=== PATIENT | female | born 1930 | race African-American/Black ===

== ENCOUNTER → 2017-03-07 | Outpatient (CLI) | payer MEDICARE ==
[~2017-03-07] MED LIST: ATOR10TA PO; CALC0.25 PO; CALC600T34 PO; CLON0.2T PO; ISOS30TA3 PO; LANTUS2P SC; LATA.005%O OU; LEVA250T PO; LORTA5 PO; METO100T PO; NIFE1TAB86 PO; NOVOLOGSS SQ; NU-IRON PO; TORS20TA PO; VITATAB25 PO; [UNRECOGNIZED DRUG - CODE] OP; [UNRECOGNIZED DRUG - OTHER]
[2017-03-07 09:57] LABS: ANION GAP 9 MEQ/L (5-15); AST (GOT) 17 U/L (15-37); BICARBONATE 26.7 MEQ/L (21.0-32.0); BLOOD UREA NITROGEN 28 MG/DL (7-18); CHLORIDE 98 MEQ/L (98-107); GLOMERULAR FILTRATION RATE 10 ML/MIN (>89); GLUCOSE,FASTING 156 MG/DL (74-99); POTASSIUM 4.2 MEQ/L (3.5-5.1); SODIUM (NA) 134 MEQ/L (136-145)
[2017-03-07 09:58] LABS: ALT (GPT) 19 U/L (10-53)
[2017-03-07 10:01] LABS: ALKALINE PHOSPHATASE 81 U/L (45-117); HDL CHOLESTEROL 61.9 MG/DL (40.0-60.0); LDL CHOLESTEROL 79 MG/DL (0-99); TOTAL BILIRUBIN ADULT 0.4 MG/DL (0.2-1.0)
[2017-03-07 17:35] LABS: HEMOGLOBIN A1b 2.2 %; HEMOGLOBIN Ao 82.6 %; HEMOGLOBIN LA1C 2.3 %; HEMOGLOBIN P3 5.8 %
== END ==
LOC: CLAB 08:27
PROVIDERS: ATTEND Internal Medicine Endocrinology, Diabetes & Metabolism
DX: E78.5 Hyperlipidemia, unspecified (principal); E11.9 Type 2 diabetes mellitus without complications; I10 Essential (primary) hypertension
CPT/HCPCS: 36415; 80053; 80061; 83036

== ENCOUNTER 2017-11-20 14:16 | Inpatient (IN) ==
--- NOTE | 2017-11-20 15:50 | XR ---
EXAM DATE: 11/20/2017 3:38 PM EDT AGE/SEX: 86 years / Female INDICATIONS: Possible infected right 3rd digit CLINICAL DATA: This is the patient's initial encounter. Patient reports that signs and symptoms have been present for 3 days and indicates a pain score of 10/10. MEDICAL/SURGICAL HISTORY: . diabetes, neuropathy, dialysis, carpal tunnel None. COMPARISON: No prior exams available for comparison. FINDINGS: The bone density is diminished. Moderate degenerative changes at the thumb basal joint. Chondrocalcin osis at the triangle fibrocartilage complex. There is soft tissue swelling seen at the tip of the thi rd digit with some osseous resorption of the distal phalangeal tuft, findings most characteristic of osteomyelitis. No dislocation. CONCLUSION: Soft tissue swelling third digit distally with partial resorption of the tuft of the third distal pha lanx, most concerning for osteomyelitis and cellulitis. Electronically signed by: Alonzo Galvan MD 11/20/2017 3:49 PM EDT
[2017-11-20 16:25] LABS: Baso # (Auto) 0.1 th/mm3 (0.0-0.2); Baso % (Auto) 0.4 % (0.0-2.0); Eos % (Auto) 0.1 % (0.0-4.0); Hematocrit 33.1 % (35.0-46.0); Lymph # (Auto) 0.9 th/mm3 (1.0-4.8); Lymph % (Auto) 5.5 % (9.0-44.0); Mean Corpuscular HGB Conc 33.4 % (32.0-36.0); Mean Corpuscular Hemoglobin 33.3 pg (27.0-34.0); Mean Corpuscular Volume 99.9 fL (80.0-100.0); Mean Platelet Volume 8.9 fL (7.0-11.0); Mono # (Auto) 1.8 th/mm3 (0.0-0.9); Mono % (Auto) 10.4 % (0.0-8.0); Neut # (Auto) 14.3 th/mm3 (1.8-7.7); Neut % (Auto) 83.6 % (16.0-70.0); Platelet Count 201 th/mm3 (150-450); Red Blood Count 3.31 mil/mm3 (4.00-5.30); Red Cell Distribution Width 13.2 % (11.6-17.2); White Blood Count 17.1 th/mm3 (4.0-11.0)
[2017-11-20 16:59] LABS: Albumin 3.4 g/dL (3.4-5.0); Anion Gap 9 meq/L (5-15); Aspartate Aminotransferase 11 U/L (15-37); Blood Urea Nitrogen 21 mg/dL (7-18); Calcium 9.4 mg/dL (8.5-10.1); Carbon Dioxide 26.1 meq/L (21.0-32.0); Chloride 98 meq/L (98-107); Glomerular Filtration Rate 15 mL/min (>89); Glucose,Random 264 mg/dL (74-106); Sodium 133 meq/L (136-145)
[2017-11-20 17:00] LABS: Alanine Aminotransferase 16 U/L (10-53)
[2017-11-20 17:02] LABS: Alkaline Phosphatase 76 U/L (45-117); Total Protein 8.3 g/dL (6.4-8.2)
[2017-11-20] MEDS ORDERED: Clindamycin 600 mg/NS Premix 600 MG/50 ML PIGGYBACK IV.SIG ONE (19:43)
[2017-11-20] MEDS ORDERED: Lidocaine 1% Inj 30 ML Vial INFILTRATN ONE (19:47)
[2017-11-20] MEDS ORDERED: Tetanus/Diphtheria Toxoid Adult Vaccine Inj 0.5 ML Vial IM ONE (19:47)
[2017-11-20] MEDS ORDERED: Acetaminophen 325 MG Tablet PO ONE (20:03)
[2017-11-20] MEDS ORDERED: Bisacodyl 10 MG Supp RECTAL PRN (20:26)
[2017-11-20] MEDS ORDERED: Vancomycin Consult Pharmacy 1 EACH OTHER SCH (20:36)
[2017-11-20] MEDS ORDERED: Dextrose 50% in Water 50 ML Vial IV.PUSH PRN (20:38)
[2017-11-20] MEDS ORDERED: Levofloxacin 250 mg Premix Inj 250 MG/50 ML PIGGYBACK IV.SIG ONE (20:43)
[2017-11-20] MEDS ORDERED: Custom Consult Pharmacy 1 EACH OTHER SCH (21:00)
[2017-11-20] MEDS ORDERED: Insulin NovoLOG Aspart Correctional Sugar Inj SQ SCH (21:00)
[2017-11-20] MEDS ORDERED: Temazepam 15 MG Capsule PO PRN (21:00)
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
[2017-11-20] MEDS ORDERED: Vancomycin Inj 1,000 MG in Sodium Chlor 0.9% Inj 250 ML IV.SIG ONE (22:00)
[2017-11-20] MEDS: Clindamycin 900 mg/NS Premix 900 MG/50 ML PIGGYBACK IV.SIG SCH (22:00)
[2017-11-20] MEDS: Insulin NovoLOG Aspart Correctional Sugar Inj SQ SCH (23:19)
[2017-11-21] MEDS: Senna/Docusate Sodium 8.6/50 MG Tablet PO SCH ×3 (00:10→21:22)
[2017-11-21] MEDS: Clindamycin 900 mg/NS Premix 900 MG/50 ML PIGGYBACK IV.SIG SCH ×3 (05:18→21:21)
--- NOTE | 2017-11-21 06:11 | P.HPIM ---
History of Present Illness Primary Care Physician: UNKNOWN History of Present Illness: 86 y/o female with a history of ESRD on dialysis, DM, HTN, and HLD presented to the ED for evaluation of infection to her right middle finger. She states she uses a tamie to play games and she plays with it using her right middle finger. Over time she has developed a callus and 4 days ago she bit it off. Today she states she was having fever and chills at home and pain in the middle finger that is thobbing, constant,5/10, and radiating up her arm. She denies any chest pain or sob. Meat Lugger: Dr. Adam Inpatient Certification: I certify that the inpatient services were ordered in accordance with Medicare regulations governing the order. This includes certification that hospital inpatient services are reasonable and necessary and in the case of services not specified as inpatient-only under 42 CFR 419.22(n), that they are appropriately provided as inpatient services in accordance to with the 2-midnight benchmark under 43 CFR 412.3(e) Estimated Total Length of Stay (Days): 3 Plans for Post Hospital Care: Not yet determined Review of Systems All other systems reviewed negative except as stated in HPI PMFSH - History History Provided By: Patient - Medical History Medical History: Medical History (Last Updated 11/21/17 @ 06:15 by YARIEL Melendrez) Anxiety Dementia Diabetes ESRD (end stage renal disease) on dialysis HLD (hyperlipidemia) HTN (hypertension) - Surgical History Surgical History: Surgical History (Last Updated 11/21/17 @ 06:15 by YARIEL Melendrez) H/O eye surgery - Family History Family History: Family History (Last Updated 11/21/17 @ 06:16 by YARIEL Melendrez) Other No history of heart disease - Tobacco History Second Hand Smoke Exposure: No Tobacco Use In Past 30 Days: No Smoking Status: Never smoker - Alcohol History How Often Do You Have a Drink Containing Alcohol: Monthly or less - Substance Use History Substance History: No History of Abuse - Travel History Recent Travel in the [place] Within the Last 8 Weeks: No Recent Travel Out of the Country Within the Last 8 Weeks: No - Immunization History Tetanus Immunization: <5 Years Tetanus Immunization Year if Known: 2017 Hx Influenza Vaccine This Season: Yes Medications and Allergies Active Medications: Active Medications Al Hydroxide/Mg Hydroxide (Milk Of Magnesia Liq) 30 ml PO Q12H PRN PRN Reason: Mild Constipation Bisacodyl (Dulcolax Supp) 10 mg RECTAL DAILY PRN PRN Reason: SEVERE CONSITIPATION Dextrose (D50w Vial) 50 ml IV.PUSH UNSCH PRN PRN Reason: PER HYPOGLYCEMIA PROTOCOL Glucagon (Glucagon Inj) 1 mg OTHER PRN PRN PRN Reason: for Hypoglycemia Protocol Clindamycin/Sodium Chloride (Cleocin 900 Mg/Ns Premix) 900 mg in 50 mls @ 100 mls/hr IV.SIG Q8H [facility] Last Admin: 11/21/17 05:18 Dose: 100 mls/hr Pharmacy Profile Note (Custom Consult Pharmacy) 0 mls @ 0 mls/hr OTHER [facility] Pharmacy Profile Note (Vancomycin Consult Pharmacy) 0 mls @ 0 mls/hr OTHER [facility] Aztreonam 1,000 mg/ Sodium (Chloride) 100 mls @ 200 mls/hr IV.SIG Q8H [facility] Last Admin: 11/21/17 05:19 Dose: 200 mls/hr Insulin Aspart (Novolog Insulin Correctional Sugar Inj) 0 unit SQ ACHS [facility]; Protocol Last Admin: 11/20/17 23:19 Dose: 9 unit Lactulose (Lactulose Liq) 30 ml PO DAILY PRN PRN Reason: SEVERE CONSITIPATION Senna/Docusate Sodium (Lisbeth-Colace) 1 tab PO BID [facility] Last Admin: 11/21/17 00:10 Dose: Not Given Sennosides (Senokot) 17.2 mg PO Q12H PRN PRN Reason: Moderate Constipation Last Admin: 11/20/17 23:24 Dose: 17.2 mg Temazepam (Restoril) 15 mg PO HS PRN PRN Reason: INSOMNIA Allergies Allergy/AdvReac Type Severity Reaction Status Date / Time penicillin G Allergy Rash Verified 11/21/17 01:31 Home Medications Medication Instructions Recorded Confirmed Type Isordil 11/20/17 History Novolog PenFill U-100 Insulin 11/20/17 History Tresiba FlexTouch U-100 11/20/17 History aspirin [Enteric Coated Aspirin] 11/20/17 11/20/17 History clonidine HCl 50 mg PO TID 11/20/17 11/20/17 History metoprolol tartrate 11/20/17 History nifedipine 07/30/18 History torsemide 11/20/17 History Exam Vital signs: Vital Signs 11/20/17 15:09 11/20/17 22:21 11/20/17 23:00 Temperature 101.6 F H 101.0 F H Pulse Rate 99 H 72 86 Respiratory Rate 20 18 Blood Pressure 213/83 H 170/86 H Pulse Oximetry 96 99 11/21/17 00:00 11/21/17 04:00 Temperature 99.1 F 98.4 F Pulse Rate 87 85 Respiratory Rate 18 17 Blood Pressure 164/70 H 155/67 H Pulse Oximetry 98 96 Intake & Output 11/20/17 11/20/17 11/21/17 06:59 18:59 06:59 Intake Total 500 / 500 Output Total Balance 499 / 499 Weight 92.986 kg 205 kg Intake: IV 100 / 100 Azactam Inj 1,000 MG In NS Inj 100 / 100 100 ML @ 200 mls/hr IV.SIG Q8H [place] Rx#:[id number] Oral 400 / 400 Output: Urine Other: Weight On Admission 205 kg Narrative: GENERAL: This is a well-nourished, well-developed patient, in no apparent distress. SKIN: Right middle finger with serous drainage, packed with gauze. warm to touch CARDIOVASCULAR: Regular rate and rhythm without murmurs, gallops, or rubs. RESPIRATORY: Clear to auscultation. Breath sounds equal bilaterally. No wheezes , rales, or rhonchi. GASTROINTESTINAL: Abdomen soft, non-tender, nondistended. Normal active bowel sounds MUSCULOSKELETAL: Extremities without clubbing, cyanosis, or edema. NEURO: Alert & Oriented x4 to person, place, time, situation. Moves all ext x4 Results - Labs CBC & Chem 7: 11/20/17 15:50 11/20/17 15:50 Labs: Short CBC 11/20/17 Range/Units 15:50 WBC 17.1 H (4.0-11.0) th/mm3 Hgb 11.0 L (11.6-15.3) gm/dL Hct 33.1 L (35.0-46.0) % Plt Count 201 (150-450) th/mm3 BMP 11/20/17 15:50 Sodium 133 L Potassium 4.0 Chloride 98 Carbon Dioxide 26.1 BUN 21 H Creatinine 3.60 H Calcium 9.4 Liver Function 11/20/17 Range/Units 15:50 Total Bilirubin 0.6 (0.2-1.0) mg/dL AST 11 L (15-37) U/L ALT 16 (10-53) U/L Alkaline Phosphatase 76 (45-117) U/L Albumin 3.4 (3.4-5.0) g/dL - Imaging Impressions Finger X-Ray 11/20/17 00:00 CONCLUSION: Soft tissue swelling third digit distally with partial resorption of the tuft of the third distal phalanx, most concerning for osteomyelitis and cellulitis. Caprini VTE Risk Assessment Caprini VTE Risk Assessment: Moderate/High Risk (score >= 2) Caprini Risk Assessment Model: Point Value = 1 Point Value = 2 Point Value = 3 Point Value = 5 Age 41-60 Minor surgery BMI > 25 kg/m2 Swollen legs Varicose veins or History of unexplained or recurrent spontaneous Oral contraceptives or hormone replacement Sepsis (< 1 month) Serious lung disease, including pneumonia (< 1 month) Abnormal pulmonary function Acute myocardial infarction Congestive heart failure (< 1 month) History of inflammatory bowel disease Medical patient at bed rest Age 61-74 Arthroscopic surgery Major open surgery (> 45 min) Laparoscopic surgery (> 45 min) Malignancy Confined to bed (> 72 hours) Immobilizing plaster cast Central venous access Age >= 75 History of VTE Family history of VTE Factor V Leiden Prothrombin [id number] Lupus anticoagulant Anticardiolipin antibodies Elevated serum homocysteine Heparin-induced thrombocytopenia Other congenital or acquired thrombophilia Stroke (< 1 month) Elective arthroplasty Hip, pelvis, or leg fracture Acute spinal cord injury (< 1 month) Prophylaxis Regimen: Total Risk Factor Score Risk Level Prophylaxis Regimen 0-1 Low Early ambulation 2 Moderate Order ONE of the following: *Sequential Compression Device (SCD) *Heparin 5000 units SQ BID 3-4 Higher Order ONE of the following medications: *Heparin 5000 units SQ TID *Enoxaparin/Lovenox 40 mg SQ daily (WT < 150 kg, CrCl > 30 mL/min) *Enoxaparin/Lovenox 30 mg SQ daily (WT < 150 kg, CrCl > 10-29 mL/min) *Enoxaparin/Lovenox 30 mg SQ BID (WT < 150 kg, CrCl > 30 mL/min) AND/OR *Sequential Compression Device (SCD) 5 or more Highest Order ONE of the following medications: *Heparin 5000 units SQ TID (Preferred with Epidurals) *Enoxaparin/Lovenox 40 mg SQ daily (WT < 150 kg, CrCl > 30 mL/min) *Enoxaparin/Lovenox 30 mg SQ daily (WT < 150 kg, CrCl > 10-29 mL/min) *Enoxaparin/Lovenox 30 mg SQ BID (WT < 150 kg, CrCl > 30 mL/min) AND *Sequential Compression Device (SCD) Assessment and Plan - Plan Right middle finger osteomyelitis, sepsis WBC 17.1, temp 101.6 Finger x ray reviewed and shows soft tissue swelling third digit distally with partial resorption of the tuft of the third distal phalanx, most concerning for osteomyelitis and cellulitis -Consult hand surgery for evaluation -IV antibiotics Azactam and vancomycin -Consult infectious disease for evaluation -NPO -Pain management with IV Morphine -Wound culture pending -OT ordered -Labs in AM ESRD on diaylsis -Consult nephrology for evaluation -Avoid nephrotoxins HTN, chronic -resume home medications one med rec is updated -Clonidine prn for now Diabetes, chronic -Accu checks with SSI -Diabetic diet when no longer npo DVT prophylaxis: SCDs Discussed Condition With: Patient and RN H&P: Quality - VTE Deep Vein Thrombosis/Pulmonary Embolism Present on Admission: No
[2017-11-21] MEDS ORDERED: Morphine Inj 4 MG/ML Vial IV.PUSH PRN (07:00)
[2017-11-21 07:46] LABS: Baso % (Auto) 0.3 % (0.0-2.0); Eos # (Auto) 0.1 th/mm3 (0.0-0.4); Eos % (Auto) 0.8 % (0.0-4.0); Hematocrit 29.8 % (35.0-46.0); Hemoglobin 9.8 gm/dL (11.6-15.3); Lymph # (Auto) 1.3 th/mm3 (1.0-4.8); Lymph % (Auto) 8.4 % (9.0-44.0); Mean Corpuscular HGB Conc 32.9 % (32.0-36.0); Mean Corpuscular Hemoglobin 33.2 pg (27.0-34.0); Mean Corpuscular Volume 100.7 fL (80.0-100.0); Mean Platelet Volume 10.3 fL (7.0-11.0); Mono # (Auto) 1.6 th/mm3 (0.0-0.9); Mono % (Auto) 10.3 % (0.0-8.0); Neut # (Auto) 12.2 th/mm3 (1.8-7.7); Neut % (Auto) 80.2 % (16.0-70.0); Platelet Count 147 th/mm3 (150-450); Red Blood Count 2.96 mil/mm3 (4.00-5.30); Red Cell Distribution Width 12.9 % (11.6-17.2); White Blood Count 15.2 th/mm3 (4.0-11.0)
[2017-11-21 08:17] LABS: Alanine Aminotransferase 14 U/L (10-53); Albumin 2.7 g/dL (3.4-5.0); Alkaline Phosphatase 77 U/L (45-117); Anion Gap 10 meq/L (5-15); Aspartate Aminotransferase 10 U/L (15-37); Blood Urea Nitrogen 34 mg/dL (7-18); Calcium 8.6 mg/dL (8.5-10.1); Carbon Dioxide 25.8 meq/L (21.0-32.0); Chloride 101 meq/L (98-107); Glomerular Filtration Rate 11 mL/min (>89); Glucose,Random 232 mg/dL (74-106); Potassium 4.1 meq/L (3.5-5.1); Sodium 137 meq/L (136-145)
[2017-11-21] MEDS ORDERED: Sod Chloride 0.9% Inj 1,000 ML OTHER PRN ×2 (10:16)
[2017-11-21] MEDS ORDERED: Gelatin 12 MM/7 MM Topical Foam TOPICAL PRN (10:16)
[2017-11-21] MEDS ORDERED: Heparin 10,000 UNITS/10 ML Vial (for IV use) OTHER PRN (10:16)
[2017-11-21] MEDS ORDERED: Albumin Human 25% Inj 100 ML IV.SIG PRN (10:16)
[2017-11-21] MEDS ORDERED: Acetaminophen 325 MG Tablet PO PRN (10:16)
[2017-11-21] MEDS ORDERED: Sod Chloride 0.9% Inj 1,000 ML IV.CONT PRN (10:16)
--- NOTE | 2017-11-21 10:16 | P.CONNP ---
History of Present Illness Reason for Consult: End-stage renal disease with need for in-house hemodialysis. Primary Care Provider: UNKNOWN Chief Complaint: Infection right hand. History of Present Illness: Patient has a history of diabetes mellitus, hypertension as well as end-stage renal disease on hemodialysis Monday. She apparently developed a scab involving the middle finger of the right hand. She apparently remove the scab by biting it and subsequently developed increasing swelling, pain and warmth of the right hand. Was sent to the emergency room and now diagnosed as having right hand infection. Review of Systems Cardiovascular: Denies chest pain, Denies chest pain at rest, Denies chest pain with activity, Denies excessive sweating, Denies fainting, Denies fast heart rate, Denies foot swelling, Denies generalized swelling, Denies irregular heart rhythm, Denies leg pain with activity, Denies leg sores, Denies leg swelling, Denies lightheadedness, Denies radiating jaw, neck or arm pain, Denies rapid, pounding, or irregular heartbeat, Denies shortness of breath, Denies shortness of breath with activity, Denies shortness of breath when lying down, Denies shortness of breath causing sudden awakening, Denies slow heart rate, Denies other Respiratory: Denies change in phlegm color, Denies chest congestion, Denies cough, Denies coughing up blood, Denies excessive phlegm production, Denies pain on inspiration, Denies pain with cough, Denies shortness of breath, Denies shortness of breath with activity, Denies snoring, Denies stridor, Denies wheezing Gastrointestinal: Denies abdominal pain, Denies belching, Denies black, tarry stools, Denies bloating, Denies bright, red blood in stools, Denies change in bowel habits, Denies constant urge to pass stool, Denies change in stools, Denies coffee ground vomit, Denies constipation, Denies cramping, Denies difficulty swallowing, Denies excessive passing of gas, Denies feeling full early, Denies heartburn, Denies incontinent of stools, Denies loose stools, Denies nausea, Denies pain with swallowing, Denies vomiting, Denies vomiting blood, Denies other Musculoskeletal: Reports joint pain PMFSH - History History Provided By: Patient - Medical History Medical History: Medical History (Last Reviewed 11/21/17 @ 10:07 by Jose Elias Adam MD) Anxiety Dementia Diabetes ESRD (end stage renal disease) on dialysis HLD (hyperlipidemia) HTN (hypertension) - Surgical History Surgical History: Surgical History (Last Reviewed 11/21/17 @ 10:06 by Jose Elias Adam MD) H/O eye surgery - Family History Family History: Family History (Last Updated 11/21/17 @ 06:16 by Lima Barajas [facility]) Other No history of heart disease - Tobacco History Second Hand Smoke Exposure: No Tobacco Use In Past 30 Days: No Smoking Status: Never smoker - Alcohol History How Often Do You Have a Drink Containing Alcohol: Monthly or less - Substance Use History Substance History: No History of Abuse - Travel History Recent Travel in the [place] Within the Last 8 Weeks: No Recent Travel Out of the Country Within the Last 8 Weeks: No - Immunization History Tetanus Immunization: <5 Years Tetanus Immunization Year if Known: 2017 Hx Influenza Vaccine This Season: Yes Medications and Allergies Active Medications: Active Medications Al Hydroxide/Mg Hydroxide (Milk Of Eleazar Lireshma) 30 ml PO Q12H PRN PRN Reason: Mild Constipation Bisacodyl (Dulcolax Supp) 10 mg RECTAL DAILY PRN PRN Reason: SEVERE CONSITIPATION Clonidine HCl (Catapres) 0.1 mg PO Q6H PRN PRN Reason: SBP>160, DBP>90 Dextrose (D50w Vial) 50 ml IV.PUSH UNSCH PRN PRN Reason: PER HYPOGLYCEMIA PROTOCOL Glucagon (Glucagon Inj) 1 mg OTHER PRN PRN PRN Reason: for Hypoglycemia Protocol Clindamycin/Sodium Chloride (Cleocin 900 Mg/Ns Premix) 900 mg in 50 mls @ 100 mls/hr IV.SIG Q8H [place] Last Admin: 11/21/17 05:18 Dose: 100 mls/hr Pharmacy Profile Note (Custom Consult Pharmacy) 0 mls @ 0 mls/hr OTHER [facility] Pharmacy Profile Note (Vancomycin Consult Pharmacy) 0 mls @ 0 mls/hr OTHER [facility] Aztreonam 1,000 mg/ Sodium (Chloride) 100 mls @ 200 mls/hr IV.SIG Q8H [place] Last Admin: 11/21/17 05:19 Dose: 200 mls/hr Insulin Aspart (Novolog Insulin Correctional Sugar Inj) 0 unit SQ ACHS [facility]; Protocol Last Admin: 11/20/17 23:19 Dose: 9 unit Lactulose (Lactulose Liq) 30 ml PO DAILY PRN PRN Reason: SEVERE CONSITIPATION Morphine Sulfate (Morphine Inj) 2 mg IV.PUSH Q3H PRN PRN Reason: PAIN 1-10 Senna/Docusate Sodium (Lisbeth-Colace) 1 tab PO BID [place] Last Admin: 11/21/17 00:10 Dose: Not Given Sennosides (Senokot) 17.2 mg PO Q12H PRN PRN Reason: Moderate Constipation Last Admin: 11/20/17 23:24 Dose: 17.2 mg Temazepam (Restoril) 15 mg PO HS PRN PRN Reason: INSOMNIA Allergies Allergy/AdvReac Type Severity Reaction Status Date / Time penicillin G Allergy Rash Verified 11/21/17 01:31 Home Medications Medication Instructions Recorded Confirmed Type Isordil 11/20/17 History Novolog PenFill U-100 Insulin 11/20/17 History Tresiba FlexTouch U-100 11/20/17 History aspirin [Enteric Coated Aspirin] 11/20/17 11/20/17 History clonidine HCl 50 mg PO TID 11/20/17 11/20/17 History metoprolol tartrate 11/20/17 History nifedipine 11/20/17 History torsemide 11/20/17 History Exam Vital signs: Vital Signs 11/20/17 15:09 11/20/17 22:21 11/20/17 23:00 Temperature 101.6 F H 101.0 F H Pulse Rate 99 H 72 86 Respiratory Rate 20 18 Blood Pressure 213/83 H 170/86 H Pulse Oximetry 96 99 11/21/17 00:00 11/21/17 04:00 11/21/17 08:00 Temperature 99.1 F 98.4 F 98.5 F Pulse Rate 87 85 91 H Respiratory Rate 18 17 17 Blood Pressure 164/70 H 155/67 H 159/68 H Pulse Oximetry 98 96 95 Intake & Output 11/20/17 11/21/17 11/21/17 18:59 06:59 18:59 Intake Total 500 / 500 Output Total 1 / Balance 499 / 499 Weight 92.986 kg 93.1 kg Intake: IV 100 / 100 Azactam Inj 1,000 MG In NS Inj 100 / 100 100 ML @ 200 mls/hr IV.SIG Q8H [place] Rx#:[id number] Oral 400 / 400 Output: Urine Other: Date of Last Bowel Movement 11/19/17 Weight On Admission 205 kg Narrative: GENERAL: Elderly female lying in bed not in respiratory distress. SKIN: Warm and dry. HEAD: Normocephalic. EYES: No scleral icterus. No injection or drainage. NECK: Supple, trachea midline. No JVD or lymphadenopathy. CARDIOVASCULAR: Regular rate and rhythm without murmurs, gallops, or rubs. RESPIRATORY: Breath sounds equal bilaterally. No accessory muscle use. GASTROINTESTINAL: Abdomen soft, non-tender, nondistended. MUSCULOSKELETAL: No cyanosis, or edema. Dressing overlying middle finger right hand not disturbed. Hand is moderately swollen. There is a functional AV dialysis fistula left upper extremity. BACK: Nontender without obvious deformity. No CVA tenderness. Results - Lab Results 11/21/17 07:15 11/21/17 07:15 Most recent lab results Calcium 8.6 mg/dL (8.5-10.1) D 11/21/17 07:15 Assessment and Plan - Assessment (1) End-stage renal disease needing dialysis Code(s): N18.6 - End stage renal disease; Z99.2 - Dependence on renal dialysis Status: Chronic Plan: Hemodialysis to continue Monday and Monday per outpatient schedule. Dialysis service has been notified. Medication should be adjusted for the patient's end-stage renal disease when indicated. Avoid gadolinium. (2) Infected hand Code(s): L08.9 - Local infection of the skin and subcutaneous tissue, unspecified Status: Acute Plan: Management per primary care physician. (3) Anemia of renal disease Code(s): D63.1 - Anemia in chronic kidney disease Status: Chronic Plan: Continue Epogen for anemia of renal disease. (4) Hypertension Code(s): I10 - Essential (primary) hypertension Status: Chronic Plan: Continue current hypertensive regimen (5) Bacteremia due to Gram-positive bacteria Code(s): R78.81 - Bacteremia Status: Acute Plan: Most likely related to patient's hand infection. Await final culture report..
--- NOTE | 2017-11-21 10:27 | P.PN ---
Subjective Interval history: Brief note. Patient seen. r middle finger appears severely edematous. Pt otherwise lying in bed in NAD. Physical Exam Vital signs: Vital Signs 11/20/17 15:09 11/20/17 22:21 11/20/17 23:00 Temperature 101.6 F H 101.0 F H Pulse Rate 99 H 72 86 Respiratory Rate 20 18 Blood Pressure 213/83 H 170/86 H Pulse Oximetry 96 99 11/21/17 00:00 11/21/17 04:00 11/21/17 08:00 Temperature 99.1 F 98.4 F 98.5 F Pulse Rate 87 85 91 H Respiratory Rate 18 17 17 Blood Pressure 164/70 H 155/67 H 159/68 H Pulse Oximetry 98 96 95 Intake & Output 11/20/17 11/21/17 11/21/17 18:59 06:59 18:59 Intake Total 500 / 500 Output Total Balance 499 / 499 Weight 92.986 kg 93.1 kg Intake: IV 100 / 100 Azactam Inj 1,000 MG In NS Inj 100 / 100 100 ML @ 200 mls/hr IV.SIG Q8H [place] Rx#:[id number] Oral 400 / 400 Output: Urine Other: Date of Last Bowel Movement 11/19/17 Weight On Admission 205 kg Results - Labs CBC & Chem 7: 11/21/17 07:15 11/21/17 07:15 Laboratory Results - last 24 hr 11/20/17 11/20/17 11/20/17 15:50 15:50 15:50 WBC 17.1 H RBC 3.31 L Hgb 11.0 L Hct 33.1 L MCV 99.9 MCH 33.3 MCHC 33.4 RDW 13.2 Plt Count 201 MPV 8.9 Neut % (Auto) 83.6 H Lymph % (Auto) 5.5 L [place] % (Auto) 10.4 H Eos % (Auto) 0.1 Baso % (Auto) 0.4 Neut # (Auto) 14.3 H Lymph # (Auto) 0.9 L [place] # (Auto) 1.8 H Eos # (Auto) 0.0 Baso # (Auto) 0.1 WBC Differential . Differential Comment Auto diff final PT 10.0 INR 1.0 Sodium 133 L Potassium 4.0 Chloride 98 Carbon Dioxide 26.1 Anion Gap 9 BUN 21 H Creatinine 3.60 H Estimated GFR 15 L POC Glucose Random Glucose 264 H Lactic Acid Calcium 9.4 Total Bilirubin 0.6 AST 11 L ALT 16 Alkaline Phosphatase 76 C-Reactive Protein Total Protein 8.3 H Albumin 3.4 11/20/17 11/20/17 11/20/17 15:50 15:50 23:13 WBC RBC Hgb Hct MCV MCH MCHC RDW Plt Count MPV Neut % (Auto) Lymph % (Auto) [place] % (Auto) Eos % (Auto) Baso % (Auto) Neut # (Auto) Lymph # (Auto) [place] # (Auto) Eos # (Auto) Baso # (Auto) WBC Differential Differential Comment PT INR Sodium Potassium Chloride Carbon Dioxide Anion Gap BUN Creatinine Estimated GFR POC Glucose 373 H Random Glucose Lactic Acid 1.5 Calcium Total Bilirubin AST ALT Alkaline Phosphatase C-Reactive Protein 19.00 H Total Protein Albumin 11/21/17 11/21/17 11/21/17 07:15 07:15 07:52 WBC 15.2 H RBC 2.96 L Hgb 9.8 L Hct 29.8 L MCV 100.7 H MCH 33.2 MCHC 32.9 RDW 12.9 Plt Count 147 L MPV 10.3 Neut % (Auto) 80.2 H Lymph % (Auto) 8.4 L [place] % (Auto) 10.3 H Eos % (Auto) 0.8 Baso % (Auto) 0.3 Neut # (Auto) 12.2 H Lymph # (Auto) 1.3 [place] # (Auto) 1.6 H Eos # (Auto) 0.1 Baso # (Auto) 0.0 WBC Differential . Differential Comment Auto diff final PT INR Sodium 137 Potassium 4.1 Chloride 101 Carbon Dioxide 25.8 Anion Gap 10 BUN 34 H Creatinine 4.54 H Estimated GFR 11 L POC Glucose 195 H Random Glucose 232 H Lactic Acid Calcium 8.6 D Total Bilirubin 0.4 AST 10 L ALT 14 Alkaline Phosphatase 77 C-Reactive Protein Total Protein 7.0 D Albumin 2.7 L D Microbiology 11/20/17 15:50 Blood - Peripheral Anaerobic Blood Culture - Preliminary gram positive cocci 11/20/17 15:50 Blood - Peripheral Anaerobic Blood Culture - Preliminary gram positive cocci 11/20/17 21:25 Abscess - Finger Gram Stain - Final - Imaging Impressions Finger X-Ray 11/20/17 00:00 CONCLUSION: Soft tissue swelling third digit distally with partial resorption of the tuft of the third distal phalanx, most concerning for osteomyelitis and cellulitis.
--- NOTE | 2017-11-21 11:27 | P.CON ---
History of Present Illness Service: Hand surgery Consult date: 11/21/17 Primary Care Provider: UNKNOWN Chief Complaint: Infection right hand. History of Present Illness: 86 y/o female with a history of ESRD on dialysis, DM, HTN, and HLD presented to the ED for evaluation of infection to her right middle finger. She reports that she had been biting her middle finger callus for several days, when it started to become infected. When she presented to the emergency department, she was endorsing fevers and chills at home and pain in the middle finger that is throbbing, constant,5/10, and radiating up her arm. She denies any chest pain or sob. Patient is status post emergency department incision and drainage yesterday. She reports that the finger feels significantly better. Review of Systems All other systems reviewed negative except as stated [facility] - History History Provided By: Patient - Medical History Medical History: Medical History (Last Updated 11/21/17 @ 06:15 by YARIEL Melendrez) Anxiety Dementia Diabetes ESRD (end stage renal disease) on dialysis HLD (hyperlipidemia) HTN (hypertension) - Surgical History Surgical History: Surgical History (Last Updated 11/21/17 @ 06:15 by YARIEL Melendrez) H/O eye surgery Family history noncontributory to presenting complaint Medication list reviewed Denies drug use [facility] - History History Provided By: Patient - Medical History Medical History: Medical History (Last Reviewed 11/21/17 @ 10:07 by Jose Elias Adam MD) Anxiety Dementia Diabetes ESRD (end stage renal disease) on dialysis HLD (hyperlipidemia) HTN (hypertension) - Surgical History Surgical History: Surgical History (Last Reviewed 11/21/17 @ 10:06 by Jose Elias Adam MD) H/O eye surgery - Family History Family History: Family History (Last Updated 11/21/17 @ 06:16 by YARIEL Melendrez) Other No history of heart disease - Tobacco History Second Hand Smoke Exposure: No Tobacco Use In Past 30 Days: No Smoking Status: Never smoker - Alcohol History How Often Do You Have a Drink Containing Alcohol: Monthly or less - Substance Use History Substance History: No History of Abuse - Travel History Recent Travel in the [place] Within the Last 8 Weeks: No Recent Travel Out of the Country Within the Last 8 Weeks: No - Immunization History Tetanus Immunization: <5 Years Tetanus Immunization Year if Known: 2017 Hx Influenza Vaccine This Season: Yes Medications and Allergies Active Medications: Active Medications Acetaminophen (Tylenol) 650 mg PO UNSCH PRN PRN Reason: SEE LABEL COMMENTS Al Hydroxide/Mg Hydroxide (Milk Of Eleazar Pace) 30 ml PO Q12H PRN PRN Reason: Mild Constipation Bisacodyl (Dulcolax Supp) 10 mg RECTAL DAILY PRN PRN Reason: SEVERE CONSITIPATION Clonidine HCl (Catapres) 0.1 mg PO Q6H PRN PRN Reason: SBP>160, DBP>90 Clonidine HCl (Catapres) 0.1 mg PO UNSCH PRN PRN Reason: SEE LABEL COMMENTS Dextrose (D50w Vial) 50 ml IV.PUSH UNSCH PRN PRN Reason: PER HYPOGLYCEMIA PROTOCOL Diphenhydramine HCl (Benadryl) 25 mg PO UNSCH PRN PRN Reason: SEE LABEL COMMENTS Epoetin Duran (Epogen Inj) 5,000 unit IV.PUSH UNSCH PRN PRN Reason: SEE LABEL COMMENTS Gelatin (Gelfoam 12 Mm/7 Mm Topical) 1 foam TOPICAL PRN PRN PRN Reason: help stop bleeding from site Glucagon (Glucagon Inj) 1 mg OTHER PRN PRN PRN Reason: for Hypoglycemia Protocol Heparin Sodium (Porcine) (Heparin Inj) 8,000 units OTHER WITH DIALYSIS PRN PRN Reason: for machine prime Clindamycin/Sodium Chloride (Cleocin 900 Mg/Ns Premix) 900 mg in 50 mls @ 100 mls/hr IV.SIG Q8H [facility] Last Admin: 11/21/17 05:18 Dose: 100 mls/hr Pharmacy Profile Note (Custom Consult Pharmacy) 0 mls @ 0 mls/hr OTHER [facility] Pharmacy Profile Note (Vancomycin Consult Pharmacy) 0 mls @ 0 mls/hr OTHER [facility] Aztreonam 1,000 mg/ Sodium (Chloride) 100 mls @ 200 mls/hr IV.SIG Q8H [facility] Last Admin: 11/21/17 05:19 Dose: 200 mls/hr Albumin Human (Flexbumin 25% Inj) 100 mls @ 60 mls/hr IV.SIG WITH DIALYSIS PRN PRN Reason: hypotension / volume replace Sodium Chloride (Ns Inj) 1,000 mls @ 0 mls/hr OTHER .Q0M PRN PRN Reason: for prime and rinse back Sodium Chloride (Ns Inj) 1,000 mls @ 200 mls/hr OTHER .Q5H PRN PRN Reason: for dialyzer flush PRN Sodium Chloride (Ns Inj) 1,000 mls @ 0 mls/hr IV.CONT .Q0M PRN PRN Reason: hypotension / volume replace Insulin Aspart (Novolog Insulin Correctional Sugar Inj) 0 unit SQ ACHS [place]; Protocol Last Admin: 11/20/17 23:19 Dose: 9 unit Lactulose (Lactulose Liq) 30 ml PO DAILY PRN PRN Reason: SEVERE CONSITIPATION Morphine Sulfate (Morphine Inj) 2 mg IV.PUSH Q3H PRN PRN Reason: PAIN 1-10 Nitroglycerin (Nitrostat Sl) 0.4 mg SL Q5M PRN PRN Reason: CHEST PAIN Ondansetron HCl (Zofran Odt) 4 mg PO UNSCH PRN PRN Reason: NAUSEA OR VOMITING Senna/Docusate Sodium (Lisbeth-Colace) 1 tab PO BID [place] Last Admin: 11/21/17 00:10 Dose: Not Given Sennosides (Senokot) 17.2 mg PO Q12H PRN PRN Reason: Moderate Constipation Last Admin: 11/20/17 23:24 Dose: 17.2 mg Temazepam (Restoril) 15 mg PO HS PRN PRN Reason: INSOMNIA Allergies Allergy/AdvReac Type Severity Reaction Status Date / Time penicillin G Allergy Rash Verified 11/21/17 01:31 Home Medications Medication Instructions Recorded Confirmed Type Isordil 11/20/17 History Novolog PenFill U-100 Insulin 11/20/17 History Tresiba FlexTouch U-100 11/20/17 History aspirin [Enteric Coated Aspirin] 11/20/17 11/20/17 History clonidine HCl 50 mg PO TID 11/20/17 11/20/17 History metoprolol tartrate 11/20/17 History nifedipine 11/20/17 History torsemide 11/20/17 History Physical Exam Vital signs: Vital Signs 11/20/17 15:09 11/20/17 22:21 11/20/17 23:00 Temperature 101.6 F H 101.0 F H Pulse Rate 99 H 72 86 Respiratory Rate 20 18 Blood Pressure 213/83 H 170/86 H Pulse Oximetry 96 99 11/21/17 00:00 11/21/17 04:00 11/21/17 08:00 Temperature 99.1 F 98.4 F 98.5 F Pulse Rate 87 85 91 H Respiratory Rate 18 17 17 Blood Pressure 164/70 H 155/67 H 159/68 H Pulse Oximetry 98 96 95 Intake & Output 11/20/17 11/21/17 11/21/17 18:59 06:59 18:59 Intake Total 500 / 500 Output Total Balance 499 / 499 Weight 92.986 kg 93.1 kg Intake: IV 100 / 100 Azactam Inj 1,000 MG In NS Inj 100 / 100 100 ML @ 200 mls/hr IV.SIG Q8H [place] Rx#:[id number] Oral 400 / 400 Output: Urine Other: Date of Last Bowel Movement 11/19/17 Weight On Admission 205 kg Narrative: No apparent anxiety moist mucous membranes PERRLA skin without rash respirations nonlabored moves all 4 extremities to command digits warm well perfused Right middle finger with draining sinus of the hyponychium as well as 1 cm longitudinal lateral incision Both of above explored bluntly with scissors No purulence expressed or encountered Assessment and Plan - Assessment (1) Infected hand Code(s): L08.9 - Local infection of the skin and subcutaneous tissue, unspecified Status: Acute - Plan 86-year-old female status post incision and drainage by the emergency department of her right middle finger felon with x-ray images concerning for osteomyelitis Multiple view x-ray images of the right middle finger personally reviewed by me showing questionable effacement of the middle finger distal phalangeal tuft, concerning for osteomyelitis Agree with IV antibiotics Consider infectious disease consult as patient will likely need prolonged antibiotics No undrained collection appreciated No surgical procedure indicated at this time Please call with questions
[2017-11-21] MEDS: Insulin NovoLOG Aspart Correctional Sugar Inj SQ SCH ×4 (11:40→21:39)
--- NOTE | 2017-11-21 13:43 | MB ---
cc: David Olmos MD DATE: 11/21/2017 REQUESTING PHYSICIAN: Dr. Bailey. REASON FOR CONSULTATION: Osteomyelitis of the hand. HISTORY OF PRESENT ILLNESS: This is an 86-year-old black female who has diabetes mellitus. The patient uses her right hand third finger, primarily to pound the keys on her Tiara. She notes that she developed an area of dry peeling skin on the tuft of the third finger on the right hand, she peeled off and then developed some swelling. She was seen by the dialysis nurse for dialysis and they noticed that the finger looked infected and therefore, she was referred to the emergency department for evaluation from dialysis. She was noted to have pain of 4/10 scale initially. The pain level then increased to 10/10. The patient had lancing of the tip of the finger and culture was taken. The culture is pending. Gram stain revealed few gram-positive cocci in pairs. The patient also has Coag positive Staph in 1 blood culture bottle from 11/20/2017 and the second blood culture bottle has gram-positive cocci in 1 of 2. She denies chills, nausea, vomiting or shortness of breath. She had a temperature elevation to 101.6 degrees on 11/20/2017, and white blood cell count was elevated at 17.1. An x-ray of the right fifth finger is concerning for osteomyelitis and there was also soft tissue swelling noted at the third finger on the right and is swollen throughout the entire length of the finger. The patient also notes that there was some swelling at the dorsum of the hand and that there was redness at the dorsum of the hand. The third finger is also erythematous throughout and there is an open wound from the incision, which has bloody drainage. PAST MEDICAL HISTORY: Diabetes mellitus, hypertension, hyperlipidemia, end-stage kidney disease on dialysis. AV fistula and bilateral cataract surgery, anxiety disorder, dementia. ALLERGIES: PENICILLIN. MEDICATIONS: Aztreonam, clindamycin, insulin, Senokot, Lisbeth-Colace. SOCIAL HISTORY: No tobacco, no alcohol. No illicit drugs. FAMILY HISTORY: Noncontributory. REVIEW OF SYSTEMS: All systems have been reviewed and are negative, except for that mentioned in the history of present illness. Namely pain in the right third finger. PHYSICAL EXAMINATION: GENERAL: Well-developed female who is in no acute distress. She is awake and alert and oriented. VITAL SIGNS: Temperature 98.1, BP 177/78, respirations 18, heart rate 88. HEENT: Head atraumatic. Extraocular movements are grossly intact. Pupils reactive to light, without icterus. Oropharynx moist mucosa without lesions. NECK: Supple without adenopathy. No swelling. LUNGS: Clear bilateral breath sounds. HEART: Regular S1, S2, without murmurs, rubs or gallops. ABDOMEN: Bowel sounds present. Soft, no tenderness appreciated. RECTAL: Not performed. EXTREMITIES: Right fifth finger is swollen and erythematous and has an open wound at the distal aspect from incision, which is draining bloody fluid. The remaining extremities have no clubbing, cyanosis or edema. SKIN: No diffuse rash. NEUROLOGIC: No gross focal findings. PSYCHIATRIC: The patient is calm and pleasant and cooperative. LABORATORY DATA: WBC 15.2, platelets 147, hemoglobin 9.8. Creatinine 4.54, BUN 34, sodium 137. IMPRESSION: 1. Right middle finger wound infection. 2. Osteomyelitis of the right middle finger. 3. Bacteremia due to Staphylococcus aureus. 4. Leukocytosis. 5. End-stage kidney disease. RECOMMENDATIONS: 1. Continue clindamycin. 2. Continue aztreonam. 3. Monitor white blood cell count. 4. Monitor blood cultures. 5. Monitor the wound culture. 6. Monitor the patient's clinical response to antibiotic treatment. Thank you for this consultation. I will monitor the patient's progress with you and will make further recommendations and followup if necessary. David Olmos MD FFBre/TL , 01:06 PM , 01:26 PM
[2017-11-22] MEDS: Clindamycin 900 mg/NS Premix 900 MG/50 ML PIGGYBACK IV.SIG SCH (04:19)
[2017-11-22] MEDS: Senna/Docusate Sodium 8.6/50 MG Tablet PO SCH ×2 (08:50→22:09)
--- NOTE | 2017-11-22 09:58 | P.PN ---
Subjective Interval history: Nursing denies any deterioration since last night. Patient says finger still painful edematous but it has improved in size. Physical Exam Vital signs: Vital Signs 11/21/17 12:00 11/21/17 16:00 11/21/17 17:00 Temperature 98.1 F 98.7 F Pulse Rate 87 92 H 86 Respiratory Rate 17 17 Blood Pressure 177/78 H 185/81 H Pulse Oximetry 94 L 96 11/21/17 17:51 11/21/17 20:00 11/22/17 00:00 Temperature 100.4 F H 98.5 F Pulse Rate 88 79 Respiratory Rate 17 16 Blood Pressure 194/85 H 137/63 Pulse Oximetry 96 98 96 11/22/17 04:00 11/22/17 08:00 Temperature 99.8 F H 100.1 F H Pulse Rate 78 82 Respiratory Rate 16 20 Blood Pressure 185/88 H 169/72 H Pulse Oximetry 96 95 Intake & Output 11/21/17 11/22/17 11/22/17 18:59 06:59 18:59 Intake Total 150 / 150 650 / 650 Output Total Balance 149 / 149 650 / 650 Weight 93.984 kg Intake: IV 150 / 150 300 / 300 Azactam Inj 1,000 MG In NS Inj 100 / 100 200 / 200 100 ML @ 200 mls/hr IV.SIG Q8H [place] Rx#:[id number] Cleocin 900 mg/NS Premix 900 mg 50 / 50 100 / 100 In 50 ml @ 100 mls/hr IV.SIG Q8H [place] Rx#:[id number] Oral 350 / 350 Output: Stool Other: # Voids 2 Date of Last Bowel Movement 11/19/17 11/19/17 Narrative: r middle finger appears less edematous than yesterday, slightly increase ROM pt in NAD, pleasant mood Results - Labs CBC & Chem 7: 11/22/17 11:20 11/21/17 07:15 Laboratory Results - last 24 hr 11/21/17 11/21/17 11/21/17 12:21 16:53 21:38 POC Glucose 302 H 290 H 117 H Random Vancomycin 11/22/17 08:12 POC Glucose Random Vancomycin 10.7 Microbiology 11/20/17 21:25 Abscess - Finger Gram Stain - Final 11/20/17 21:25 Abscess - Finger Wound Culture - Preliminary Staphylococcus species 11/20/17 15:50 Blood - Peripheral Aerobic Blood Culture - Preliminary gram positive cocci 11/20/17 15:50 Blood - Peripheral Anaerobic Blood Culture - Preliminary Staphylococcus aureus 11/20/17 15:50 Blood - Peripheral Aerobic Blood Culture - Preliminary No growth in 1 day 11/20/17 15:50 Blood - Peripheral Anaerobic Blood Culture - Preliminary gram positive cocci Assessment and Plan - Plan Right middle finger osteomyelitis, sepsis -fevers still present, now low grade -Hand surgery recommends IV antibiotics, no surgery at this time -ID comanaging antibiotics, suspecting osteomyelitis -Consult infectious disease for evaluation -Pain management with IV Morphine -Wound culture pending -OT ordered -Labs in AM ESRD on diaylsis -Consult nephrology for evaluation -Avoid nephrotoxins HTN, chronic -Medical reconciliation still not done, have sent a message to nursing to please update, will start low-dose Lopressor twice daily for now since that could possibly be a home medicine -Clonidine prn for now Diabetes, chronic -Accu checks with SSI -Diabetic diet when no longer npo DVT prophylaxis: SCDs
[2017-11-22 11:41] LABS: Baso % (Auto) 0.3 % (0.0-2.0); Eos # (Auto) 0.1 th/mm3 (0.0-0.4); Eos % (Auto) 0.6 % (0.0-4.0); Hematocrit 31.1 % (35.0-46.0); Hemoglobin 10.4 gm/dL (11.6-15.3); Lymph # (Auto) 1.2 th/mm3 (1.0-4.8); Mean Corpuscular HGB Conc 33.5 % (32.0-36.0); Mean Corpuscular Hemoglobin 33.2 pg (27.0-34.0); Mean Corpuscular Volume 99.1 fL (80.0-100.0); Mean Platelet Volume 8.6 fL (7.0-11.0); Mono # (Auto) 1.6 th/mm3 (0.0-0.9); Mono % (Auto) 9.8 % (0.0-8.0); Neut # (Auto) 13.5 th/mm3 (1.8-7.7); Neut % (Auto) 82.3 % (16.0-70.0); Platelet Count 204 th/mm3 (150-450); Red Blood Count 3.14 mil/mm3 (4.00-5.30); Red Cell Distribution Width 12.9 % (11.6-17.2); White Blood Count 16.4 th/mm3 (4.0-11.0)
[2017-11-22] MEDS: Insulin NovoLOG Aspart Correctional Sugar Inj SQ SCH ×3 (11:55→22:26)
[2017-11-22] MEDS ORDERED: Vancomycin Inj 1,500 MG in Sodium Chlor 0.9% Inj 500 ML IV.SIG ONE (12:00)
--- NOTE | 2017-11-22 13:20 | P.PNID ---
Subjective Remarks: Patient notes pain in the right 3rd finger 6/10 scale. No fever. Denies chills. Blood culture has staph aureus. Wound culture has staph aureus. Past Medical History: PAST MEDICAL HISTORY: Diabetes mellitus, hypertension, hyperlipidemia, end-stage kidney disease on dialysis. AV fistula and bilateral cataract surgery, anxiety disorder, dementia. Allergies/Adverse Reactions: Allergies penicillin G Allergy (Verified 11/21/17 01:31) Rash RASH Objective Vital Signs 11/21/17 16:00 11/21/17 17:00 11/21/17 17:51 Temperature 98.7 F Pulse Rate 92 H 86 Respiratory Rate 17 Blood Pressure 185/81 H Pulse Oximetry 96 96 11/21/17 20:00 11/22/17 00:00 11/22/17 04:00 Temperature 100.4 F H 98.5 F 99.8 F H Pulse Rate 88 79 78 Respiratory Rate 17 16 16 Blood Pressure 194/85 H 137/63 185/88 H Pulse Oximetry 98 96 96 11/22/17 08:00 Temperature 100.1 F H Pulse Rate 82 Respiratory Rate 20 Blood Pressure 169/72 H Pulse Oximetry 95 Intake & Output 11/21/17 11/22/17 11/22/17 18:59 06:59 18:59 Intake Total 150 / 150 650 / 650 Output Total 1999 Balance 149 / 149 650 / 650 -1999 Weight 93.984 kg Intake: IV 150 / 150 300 / 300 Azactam Inj 1,000 MG In NS Inj 100 / 100 200 / 200 100 ML @ 200 mls/hr IV.SIG Q8H [place] Rx#:[id number] Cleocin 900 mg/NS Premix 900 mg 50 / 50 100 / 100 In 50 ml @ 100 mls/hr IV.SIG Q8H [facility] Rx#:[id number] Oral 350 / 350 Output: Stool Hemodialysis Amount 1999 Other: # Voids 2 Date of Last Bowel Movement 11/19/17 11/19/17 11/22/17 12:00 Blood - Line Aerobic Blood Culture - Pending 11/22/17 12:00 Blood - Line Anaerobic Blood Culture - Pending 11/22/17 12:00 Blood - Line Aerobic Blood Culture - Pending 11/22/17 12:00 Blood - Line Anaerobic Blood Culture - Pending 11/20/17 15:50 Blood - Peripheral Aerobic Blood Culture - Preliminary Staphylococcus aureus 11/20/17 15:50 Blood - Peripheral Anaerobic Blood Culture - Preliminary Staphylococcus aureus 11/20/17 15:50 Blood - Peripheral Aerobic Blood Culture - Preliminary No growth in 2 days 11/20/17 15:50 Blood - Peripheral Anaerobic Blood Culture - Preliminary Staphylococcus aureus 11/20/17 21:25 Abscess - Finger Gram Stain - Final 11/20/17 21:25 Abscess - Finger Wound Culture - Final Staphylococcus aureus Lab - Hematology Results 11/20/17 11/21/17 11/22/17 15:50 07:15 11:20 WBC 17.1 H 15.2 H 16.4 H RBC 3.31 L 2.96 L 3.14 L Hgb 11.0 L 9.8 L 10.4 L Hct 33.1 L 29.8 L 31.1 L MCV 99.9 100.7 H 99.1 MCH 33.3 33.2 33.2 MCHC 33.4 32.9 33.5 RDW 13.2 12.9 12.9 Plt Count 201 147 L 204 D MPV 8.9 10.3 8.6 Neut % (Auto) 83.6 H 80.2 H 82.3 H Lymph % (Auto) 5.5 L 8.4 L 7.0 L [place] % (Auto) 10.4 H 10.3 H 9.8 H Eos % (Auto) 0.1 0.8 0.6 Baso % (Auto) 0.4 0.3 0.3 Neut # (Auto) 14.3 H 12.2 H 13.5 H Lymph # (Auto) 0.9 L 1.3 1.2 [place] # (Auto) 1.8 H 1.6 H 1.6 H Eos # (Auto) 0.0 0.1 0.1 Baso # (Auto) 0.1 0.0 0.0 WBC Differential . . . Differential Comment Auto diff final Auto diff final Auto diff final Lab - Chemistry Results 11/20/17 11/20/17 11/20/17 15:50 15:50 15:50 Sodium 133 L Potassium 4.0 Chloride 98 Carbon Dioxide 26.1 Anion Gap 9 BUN 21 H Creatinine 3.60 H Estimated GFR 15 L POC Glucose Random Glucose 264 H Lactic Acid 1.5 Calcium 9.4 Total Bilirubin 0.6 AST 11 L ALT 16 Alkaline Phosphatase 76 C-Reactive Protein 19.00 H Total Protein 8.3 H Albumin 3.4 11/20/17 11/21/17 11/21/17 23:13 07:15 07:52 Sodium 137 Potassium 4.1 Chloride 101 Carbon Dioxide 25.8 Anion Gap 10 BUN 34 H Creatinine 4.54 H Estimated GFR 11 L POC Glucose 373 H 195 H Random Glucose 232 H Lactic Acid Calcium 8.6 D Total Bilirubin 0.4 AST 10 L ALT 14 Alkaline Phosphatase 77 C-Reactive Protein Total Protein 7.0 D Albumin 2.7 L D 11/21/17 11/21/17 11/21/17 12:21 16:53 21:38 Sodium Potassium Chloride Carbon Dioxide Anion Gap BUN Creatinine Estimated GFR POC Glucose 302 H 290 H 117 H Random Glucose Lactic Acid Calcium Total Bilirubin AST ALT Alkaline Phosphatase C-Reactive Protein Total Protein Albumin 11/22/17 12:20 Sodium Potassium Chloride Carbon Dioxide Anion Gap BUN Creatinine Estimated GFR POC Glucose 128 H Random Glucose Lactic Acid Calcium Total Bilirubin AST ALT Alkaline Phosphatase C-Reactive Protein Total Protein Albumin Imaging: ITS Impressions Finger X-Ray 11/20/17 00:00 CONCLUSION: Soft tissue swelling third digit distally with partial resorption of the tuft of the third distal phalanx, most concerning for osteomyelitis and cellulitis. Physical Exam: GENERAL: Well-developed female who is in no acute distress. Awake and alert and oriented. HEENT: Head atraumatic. Extraocular movements are grossly intact. Pupils reactive to light, without icterus. Oropharynx moist mucosa without lesions. NECK: Supple without adenopathy. LUNGS: Clear bilateral breath sounds. HEART: Regular S1, S2, without murmurs, rubs or gallops. EXTREMITIES: Right 3rd finger is swollen and erythematous. Dressing in place. SKIN: No diffuse rash. NEUROLOGIC: No gross focal findings. PSYCHIATRIC: Calm and cooperative. Assessment and Plan - Plan IMPRESSION: 1. Right middle finger wound infection. MSSA. R. Clindamycin. 2. Osteomyelitis of the right middle finger. 3. Bacteremia due to Staphylococcus aureus. Finger infection source. 4. Leukocytosis. 5. End-stage kidney disease. RECOMMENDATIONS: 1. Stop clindamycin. 2. Stop aztreonam. 3. Vancomycin after dialysis. 4. Monitor white blood cell count. 5. Repeat blood cultures. (ordered). 6. When blood culture is cleared, plan on outpatient IV antibiotic treatment for osteomyelitis.
[2017-11-22] MEDS: Metoprolol Tartrate 25 MG Tablet PO SCH ×2 (16:41→22:07)
--- NOTE | 2017-11-23 09:30 | P.PNNP ---
Subjective Interval history: Pt laying in bed in NAD. Says her finger is feeling better. Appetite good. No fever, no nausea, no vomiting. <Laisha Montelongo R - Last Filed: 11/23/17 09:27> Physical Exam Vital signs: Vital Signs 11/22/17 14:09 11/22/17 16:00 11/22/17 20:00 Temperature 100.3 F H 101.2 F H 100.8 F H Pulse Rate 99 H 99 H 85 Respiratory Rate 18 18 17 Blood Pressure 200/80 H 188/80 H 116/58 L Pulse Oximetry 96 93 L 97 11/23/17 00:00 11/23/17 04:00 11/23/17 08:00 Temperature 99.3 F 98.9 F 98.1 F Pulse Rate 78 80 75 Respiratory Rate 16 17 Blood Pressure 100/59 L 127/59 L 145/70 H Pulse Oximetry 94 L 95 98 Intake & Output 11/22/17 11/23/17 11/23/17 18:59 06:59 18:59 Intake Total 830 / 830 460 / 460 Output Total 4002 / 4002 Balance -3172 / -3172 460 / 460 Weight 93.468 kg Intake: Oral 830 / 830 460 / 460 Output: Urine 1 / 1 Stool 1 / 1 Hemodialysis Amount 4000 / 4000 Other: # Voids 0 Date of Last Bowel Movement 11/19/17 # Bowel Movements 0 - Constitutional no acute distress - Routine Respiratory Exam Present: CTA bilaterally - Routine Cardiovascular Exam Present: RRR, S1, S2 - Routine Abdominal Exam Present: soft - Routine Skin Exam Present: intact Comments: R middle finger s/p debridement. Swelling improved. - Routine Neurological Exam Present: alert, oriented X3 - Routine Psychiatric Exam Present: normal affect, normal thought process <Laisha Montelongo R - Last Filed: 11/23/17 09:27> Vital signs: Vital Signs 11/23/17 16:00 11/23/17 20:00 11/24/17 00:00 Temperature 98.2 F 98.4 F 98.4 F Pulse Rate 81 81 78 Respiratory Rate 19 18 16 Blood Pressure 162/72 H 144/64 H 150/76 H Pulse Oximetry 96 96 96 11/24/17 04:00 11/24/17 08:00 Temperature 98.1 F 99.0 F Pulse Rate 83 74 Respiratory Rate 17 18 Blood Pressure 134/79 164/60 H Pulse Oximetry 96 98 Intake & Output 11/23/17 11/24/17 11/24/17 18:59 06:59 18:59 Intake Total 960 / 960 550 / 550 Output Total 0 / 0 Balance 960 / 960 550 / 550 Intake: Oral 960 / 960 550 / 550 Output: Urine 0 / 0 Other: # Voids 1 Date of Last Bowel Movement 11/19/17 # Bowel Movements 0 1 <Jose Elias Adam - Last Filed: 11/24/17 12:40> Assessment and Plan - Assessment (1) End-stage renal disease needing dialysis Code(s): N18.6 - End stage renal disease; Z99.2 - Dependence on renal dialysis Status: Chronic Plan: Hemodialysis to continue Monday and Monday per outpatient schedule. ID note reviewed. Medication should be adjusted for the patient's end-stage renal disease when indicated. Avoid gadolinium. (2) Infected hand Code(s): L08.9 - Local infection of the skin and subcutaneous tissue, unspecified Status: Acute Plan: ID on case. Wound Cx and BCx postive for S. aureus. On Vanco. Mgmt deferred to ID. (3) Anemia of renal disease Code(s): D63.1 - Anemia in chronic kidney disease Status: Chronic Plan: Continue Epogen for anemia of renal disease. (4) Hypertension Code(s): I10 - Essential (primary) hypertension Status: Chronic Plan: Continue current hypertensive regimen (5) Bacteremia due to Gram-positive bacteria Code(s): R78.81 - Bacteremia Status: Acute Plan: Most likely related to patient's hand infection. <Laisha Montelongo - Last Filed: 11/23/17 09:27> - Assessment (1) End-stage renal disease needing dialysis Code(s): N18.6 - End stage renal disease; Z99.2 - Dependence on renal dialysis Status: Chronic (2) Infected hand Code(s): L08.9 - Local infection of the skin and subcutaneous tissue, unspecified Status: Acute (3) Anemia of renal disease Code(s): D63.1 - Anemia in chronic kidney disease Status: Chronic (4) Hypertension Code(s): I10 - Essential (primary) hypertension Status: Chronic (5) Bacteremia due to Gram-positive bacteria Code(s): R78.81 - Bacteremia Status: Acute - Attending Attestation The exam, history, and the medical decision-making described in the above note were completed with the assistance of the TIN. <Jose Elias Adam - Last Filed: 11/24/17 12:40>
[2017-11-23] MEDS: Senna/Docusate Sodium 8.6/50 MG Tablet PO SCH ×2 (09:48→21:24)
[2017-11-23] MEDS: Insulin NovoLOG Aspart Correctional Sugar Inj SQ SCH ×4 (09:48→21:23)
[2017-11-23] MEDS: Metoprolol Tartrate 25 MG Tablet PO SCH ×2 (09:48→21:24)
--- NOTE | 2017-11-23 14:55 | P.PN ---
Subjective Interval history: No deterioration since last night. Patient says she is able to move her finger more today. Physical Exam Vital signs: Vital Signs 11/22/17 16:00 11/22/17 20:00 11/23/17 00:00 Temperature 101.2 F H 100.8 F H 99.3 F Pulse Rate 99 H 85 78 Respiratory Rate 18 17 16 Blood Pressure 188/80 H 116/58 L 100/59 L Pulse Oximetry 93 L 97 94 L 11/23/17 04:00 11/23/17 08:00 11/23/17 09:40 Temperature 98.9 F 98.1 F Pulse Rate 80 85 Respiratory Rate 17 Blood Pressure 127/59 L 145/70 H Pulse Oximetry 95 98 93 L 11/23/17 12:00 Temperature 98.4 F Pulse Rate 78 Respiratory Rate 19 Blood Pressure 142/65 H Pulse Oximetry 100 Intake & Output 11/22/17 11/23/17 11/23/17 18:59 06:59 18:59 Intake Total 830 / 830 460 / 460 Output Total 4002 / 4002 Balance -3172 / -3172 460 / 460 Weight 93.468 kg Intake: Oral 830 / 830 460 / 460 Output: Urine / Stool / Hemodialysis Amount 4000 / 4000 Other: # Voids 0 Date of Last Bowel Movement 11/19/17 11/19/17 # Bowel Movements 0 Narrative: Right middle finger still is edematous but is able to fully flex actively No purulence expressed or encountered Lying in bed, no acute distress Results - Labs CBC & Chem 7: 11/22/17 11:20 11/21/17 07:15 Laboratory Results - last 24 hr 11/22/17 11/23/17 22:02 07:36 POC Glucose 387 H 194 H Microbiology 11/20/17 15:50 Blood - Peripheral Aerobic Blood Culture - Preliminary No growth in 3 days 11/20/17 15:50 Blood - Peripheral Anaerobic Blood Culture - Final Staphylococcus aureus 11/20/17 15:50 Blood - Peripheral Aerobic Blood Culture - Final Staphylococcus aureus 11/20/17 15:50 Blood - Peripheral Anaerobic Blood Culture - Final Staphylococcus aureus 11/22/17 12:00 Blood - Line Aerobic Blood Culture - Preliminary No growth in 1 day 11/22/17 12:00 Blood - Line Anaerobic Blood Culture - Preliminary No growth in 1 day 11/22/17 12:00 Blood - Line Aerobic Blood Culture - Preliminary No growth in 1 day 11/22/17 12:00 Blood - Line Anaerobic Blood Culture - Preliminary No growth in 1 day Assessment and Plan - Plan Right middle finger osteomyelitis, sepsis MSSA Bacteremia likely 2/2 finger infx -fevers resolved -Hand surgery recommends IV antibiotics, no surgery at this time -ID comanaging antibiotics, suspecting osteomyelitis -OT ordered - repeat BCs negative cultures neg - vanc, ID following ESRD on diaylsis -Consult nephrology for evaluation -Avoid nephrotoxins HTN, chronic -Medical reconciliation still not done, have sent a message to nursing to please update, -lopressor bid -Clonidine prn for now Diabetes, chronic -Accu checks with SSI -Diabetic diet when no longer npo DVT prophylaxis: SCDs Discharge Planning: DC pending clearance with ID and any further outpatient IV antibiotic arrangements
[2017-11-24 07:49] LABS: Baso % (Auto) 0.4 % (0.0-2.0); Eos # (Auto) 0.3 th/mm3 (0.0-0.4); Eos % (Auto) 2.8 % (0.0-4.0); Hematocrit 26.8 % (35.0-46.0); Hemoglobin 8.8 gm/dL (11.6-15.3); Lymph % (Auto) 16.1 % (9.0-44.0); Mean Corpuscular Hemoglobin 32.9 pg (27.0-34.0); Mean Corpuscular Volume 99.7 fL (80.0-100.0); Mean Platelet Volume 9.3 fL (7.0-11.0); Mono # (Auto) 1.5 th/mm3 (0.0-0.9); Neut # (Auto) 8.4 th/mm3 (1.8-7.7); Neut % (Auto) 68.7 % (16.0-70.0); Platelet Count 204 th/mm3 (150-450); Red Blood Count 2.69 mil/mm3 (4.00-5.30); Red Cell Distribution Width 13.2 % (11.6-17.2); White Blood Count 12.2 th/mm3 (4.0-11.0)
--- NOTE | 2017-11-24 08:10 | P.PN ---
Subjective Interval history: F/U RMF infection and MSSA bacteremia. Intermittent finger pain when BP is taken Physical Exam Vital signs: Vital Signs 11/23/17 09:40 11/23/17 12:00 11/23/17 16:00 Temperature 98.4 F 98.2 F Pulse Rate 78 81 Respiratory Rate 19 19 Blood Pressure 142/65 H 162/72 H Pulse Oximetry 93 L 100 96 11/23/17 20:00 11/24/17 00:00 11/24/17 04:00 Temperature 98.4 F 98.4 F 98.1 F Pulse Rate 81 78 83 Respiratory Rate 18 16 17 Blood Pressure 144/64 H 150/76 H 134/79 Pulse Oximetry 96 96 96 Intake & Output 11/23/17 11/24/17 11/24/17 18:59 06:59 18:59 Intake Total 960 / 960 550 / 550 Output Total 0 / 0 Balance 960 / 960 550 / 550 Intake: Oral 960 / 960 550 / 550 Output: Urine 0 / 0 Other: # Voids 1 Date of Last Bowel Movement 11/19/17 # Bowel Movements 0 1 Narrative: r middle finger appears less edematous than yesterday, slightly increase ROM. Contracted fingers pt in NAD, pleasant mood Results - Labs CBC & Chem 7: 11/24/17 06:49 11/24/17 06:49 Laboratory Results - last 24 hr 11/23/17 11/23/17 11/23/17 15:10 18:24 19:57 WBC RBC Hgb Hct MCV MCH MCHC RDW Plt Count MPV Neut % (Auto) Lymph % (Auto) [place] % (Auto) Eos % (Auto) Baso % (Auto) Neut # (Auto) Lymph # (Auto) [place] # (Auto) Eos # (Auto) Baso # (Auto) WBC Differential Differential Comment POC Glucose 475 H* 361 H 243 H 11/24/17 06:49 WBC 12.2 H RBC 2.69 L Hgb 8.8 L Hct 26.8 L MCV 99.7 MCH 32.9 MCHC 33.0 RDW 13.2 Plt Count 204 MPV 9.3 Neut % (Auto) 68.7 Lymph % (Auto) 16.1 [place] % (Auto) 12.0 H Eos % (Auto) 2.8 Baso % (Auto) 0.4 Neut # (Auto) 8.4 H Lymph # (Auto) 2.0 [place] # (Auto) 1.5 H Eos # (Auto) 0.3 Baso # (Auto) 0.0 WBC Differential . Differential Comment Auto diff final POC Glucose Microbiology 11/20/17 15:50 Blood - Peripheral Aerobic Blood Culture - Preliminary No growth in 3 days 11/20/17 15:50 Blood - Peripheral Anaerobic Blood Culture - Final Staphylococcus aureus 11/20/17 15:50 Blood - Peripheral Aerobic Blood Culture - Final Staphylococcus aureus 11/20/17 15:50 Blood - Peripheral Anaerobic Blood Culture - Final Staphylococcus aureus 11/22/17 12:00 Blood - Line Aerobic Blood Culture - Preliminary No growth in 1 day 11/22/17 12:00 Blood - Line Anaerobic Blood Culture - Preliminary No growth in 1 day 11/22/17 12:00 Blood - Line Aerobic Blood Culture - Preliminary No growth in 1 day 11/22/17 12:00 Blood - Line Anaerobic Blood Culture - Preliminary No growth in 1 day - Imaging ITS Impressions Finger X-Ray 11/20/17 00:00 CONCLUSION: Soft tissue swelling third digit distally with partial resorption of the tuft of the third distal phalanx, most concerning for osteomyelitis and cellulitis. - Procedures none Assessment and Plan - Assessment (1) End-stage renal disease needing dialysis Code(s): N18.6 - End stage renal disease; Z99.2 - Dependence on renal dialysis Status: Chronic (2) Infected hand Code(s): L08.9 - Local infection of the skin and subcutaneous tissue, unspecified Status: Acute - Plan Right middle finger osteomyelitis, sepsis MSSA Bacteremia likely 2/2 finger infx -fevers resolved -Hand surgery recommends IV antibiotics, no surgery at this time -ID comanaging antibiotics, suspecting osteomyelitis. Dc when bacteremia resolves -OT ordered -repeat BCs negative cultures neg -IV vanc after HD, ID following ESRD on dialysis -managed by nephrology -Avoid nephrotoxins HTN, chronic -Medical reconciliation still not done, have dw nursing to please update, -lopressor bid -Clonidine prn for now Diabetes, chronic -Accu checks with SSI -Diabetic diet -hypergycemic restart Novolog 20 units ac TID and long acting insulin 38 units HS DVT prophylaxis: SCDs, ambulatory Discharge Planning: DC pending clearance with ID and any further outpatient IV antibiotic arrangements
[2017-11-24 08:30] LABS: Albumin 2.4 g/dL (3.4-5.0); Calcium 8.9 mg/dL (8.5-10.1); Carbon Dioxide 27.1 meq/L (21.0-32.0); Phosphorus 3.2 mg/dL (2.5-4.9); Potassium 4.1 meq/L (3.5-5.1); Vancomycin,Random 20.6 Comment
[2017-11-24] MEDS: Metoprolol Tartrate 25 MG Tablet PO SCH (08:34)
[2017-11-24] MEDS: Senna/Docusate Sodium 8.6/50 MG Tablet PO SCH ×2 (08:34→21:07)
[2017-11-24] MEDS: Insulin NovoLOG Aspart Correctional Sugar Inj SQ SCH ×4 (08:35→21:05)
[2017-11-24 09:40] VITALS: O2SAT 98
[2017-11-24] MEDS ORDERED: Vancomycin Inj 1,000 MG in Sodium Chlor 0.9% Inj 250 ML IV.SIG SCH (10:00)
--- NOTE | 2017-11-24 11:23 | P.PNWCN ---
Wound Care Nurse Consult Additional information: Attempted to see patient @1023, patient off unit, per RN patient is in dialysis and will be back later today.
--- NOTE | 2017-11-24 12:41 | P.DCO ---
Post Hospital Infusion Therapy Location of Infusion Therapy: Home Health Care IV Infusion Order Patient Weight: 93.468 kg - Diagnosis (1) Osteomyelitis Code(s): M86.9 - Osteomyelitis, unspecified - Administer Medication Vancomycin Dose: 1 gram IV Directions: q 48 hours with Hemodialysis M/W/F Stop Treatment: 01/01/18 - Additional Information Venous Access: Other Additional Instructions: [x] Peripheral flush and dressing changes per protocol [x] Implanted port and central dragline operator: * Implanted port: 10 ml Normal Saline followed by 5 ml Heparin 100 units/ml Heparin flush after each use and monthly to maintain. [] May leave port accessed during therapy. [] May leave peripheral site accessed for duration of therapy. [x] If patient has SOB or respiratory distress, check oxygen saturation. If less than 90% or clinical signs of respiratory distress, administer oxygen at 2 L/min. via nasal cannula and notify physician. [x] Anaphylaxis/Reaction orders: * Stop infusion. * Keep IV line open with saline flush. * Notify physician. * Monitor vital signs every 15 minutes until symptoms resolve. * Check Oxygen saturation; Oxygen at 2 L/min. via nasal cannula if less than 90% or clinical signs of respiratory distress. * Administer diphenhydramine (Benadryl) 25 mg IV STAT, (unless patient has received as pre-med). May repeat once, if necessary. * Solu-Cortef 250 mg IVP over 30-60 seconds, use 100 mg vials for each dissolution. * Epinephrine (1mg/1 ml) 0.3 mg subcutaneously or IVP now with any signs of respiratory distress. * Check with physician for new additional pre-med orders if patient is re- challenged or re-treated. [x] May remove PICC line when treatment complete, after confirming with Physician. [x] If the patient is admitted to the hospital, the ED, or transferred via [facility] , complete transfer form including medication reconciliation order sheet. Additional Information: Follow up with Dr. Edith Alvarez in 2 weeks. Allergies penicillin G Allergy (Verified 11/21/17 01:31) Rash RASH (1) Osteomyelitis Qualifiers: Osteomyelitis type: acute hematogenous Osteomyelitis location: hand Laterality: right Qualified Code(s): M86.041 - Acute hematogenous osteomyelitis , right hand
--- NOTE | 2017-11-24 12:45 | P.PNNP ---
Subjective Interval history: Patient was seen during dialysis today. Infectious disease doctor was by the bedside also. Patient had no verbal complaints. Physical Exam Vital signs: Vital Signs 11/23/17 16:00 11/23/17 20:00 11/24/17 00:00 Temperature 98.2 F 98.4 F 98.4 F Pulse Rate 81 81 78 Respiratory Rate 19 18 16 Blood Pressure 162/72 H 144/64 H 150/76 H Pulse Oximetry 96 96 96 11/24/17 04:00 11/24/17 08:00 Temperature 98.1 F 99.0 F Pulse Rate 83 74 Respiratory Rate 17 18 Blood Pressure 134/79 164/60 H Pulse Oximetry 96 98 Intake & Output 11/23/17 11/24/17 11/24/17 18:59 06:59 18:59 Intake Total 960 / 960 550 / 550 Output Total 0 / 0 Balance 960 / 960 550 / 550 Intake: Oral 960 / 960 550 / 550 Output: Urine 0 / 0 Other: # Voids 1 Date of Last Bowel Movement 11/19/17 # Bowel Movements 0 1 Narrative: GENERAL: Currently on dialysis. Dialysis access appears to be working well. SKIN: Warm and dry. HEAD: Normocephalic. EYES: No scleral icterus. No injection or drainage. NECK: Supple, trachea midline. No JVD or lymphadenopathy. CARDIOVASCULAR: Regular rate and rhythm without murmurs, gallops, or rubs. RESPIRATORY: Breath sounds equal bilaterally. No accessory muscle use. GASTROINTESTINAL: Abdomen soft, non-tender, nondistended. MUSCULOSKELETAL: No cyanosis, or edema. Dressing overlying the right middle finger not disturbed. Assessment and Plan - Assessment (1) End-stage renal disease needing dialysis Code(s): N18.6 - End stage renal disease; Z99.2 - Dependence on renal dialysis Status: Chronic Plan: Patient currently stable on a dialysis today. Hemodialysis to continue Monday and Monday per outpatient schedule. The patient will require vancomycin for about 5 weeks post discharge as per my discussion with infectious disease by the bedside. Since this is not a dialysis related infection the patient will have to bring in the vancomycin for treatments as the dialysis center cannot provide same as discussed with infectious disease. Infectious disease and case management to coordinate outpatient antibiotics. Patient is aware of same. Medication should be adjusted for the patient's end-stage renal disease when indicated. Avoid gadolinium. (2) Infected hand Code(s): L08.9 - Local infection of the skin and subcutaneous tissue, unspecified Status: Acute Plan: ID on case. Wound Cx and BCx postive for S. aureus. On Vanco. Mgmt deferred to ID. (3) Anemia of renal disease Code(s): D63.1 - Anemia in chronic kidney disease Status: Chronic Plan: Continue Epogen for anemia of renal disease. Increase Epogen dosage. Hemoglobin has fallen. (4) Hypertension Code(s): I10 - Essential (primary) hypertension Status: Chronic Plan: Continue current hypertensive regimen (5) Bacteremia due to Gram-positive bacteria Code(s): R78.81 - Bacteremia Status: Acute Plan: Most likely related to patient's hand infection.
--- NOTE | 2017-11-24 12:56 | P.PNID ---
Subjective Remarks: Patient notes less pain in the right 3rd finger. No fever. Denies chills. Reports that she gets numbness in her right fourth and fifth fingers when the blood pressure cuff is inflated. Blood culture has staph aureus. Repeat blood cultures no growth in 2 days. Wound culture has staph aureus. Past Medical History: PAST MEDICAL HISTORY: Diabetes mellitus, hypertension, hyperlipidemia, end-stage kidney disease on dialysis. AV fistula and bilateral cataract surgery, anxiety disorder, dementia. Allergies/Adverse Reactions: Allergies penicillin G Allergy (Verified 11/21/17 01:31) Rash RASH Objective Vital Signs 11/23/17 16:00 11/23/17 20:00 11/24/17 00:00 Temperature 98.2 F 98.4 F 98.4 F Pulse Rate 81 81 78 Respiratory Rate 19 18 16 Blood Pressure 162/72 H 144/64 H 150/76 H Pulse Oximetry 96 96 96 11/24/17 04:00 11/24/17 08:00 Temperature 98.1 F 99.0 F Pulse Rate 83 74 Respiratory Rate 17 18 Blood Pressure 134/79 164/60 H Pulse Oximetry 96 98 Intake & Output 11/23/17 11/24/17 11/24/17 18:59 06:59 18:59 Intake Total 960 / 960 550 / 550 Output Total 0 / 0 Balance 960 / 960 550 / 550 Weight 93.468 kg Intake: Oral 960 / 960 550 / 550 Output: Urine 0 / 0 Other: # Voids 1 Date of Last Bowel Movement 11/19/17 # Bowel Movements 0 1 11/22/17 12:00 Blood - Line Aerobic Blood Culture - Preliminary No growth in 2 days 11/22/17 12:00 Blood - Line Anaerobic Blood Culture - Preliminary No growth in 2 days 11/22/17 12:00 Blood - Line Aerobic Blood Culture - Preliminary No growth in 2 days 11/22/17 12:00 Blood - Line Anaerobic Blood Culture - Preliminary No growth in 2 days 11/20/17 15:50 Blood - Peripheral Aerobic Blood Culture - Preliminary No growth in 4 days 11/20/17 15:50 Blood - Peripheral Anaerobic Blood Culture - Final Staphylococcus aureus 11/20/17 15:50 Blood - Peripheral Aerobic Blood Culture - Final Staphylococcus aureus 11/20/17 15:50 Blood - Peripheral Anaerobic Blood Culture - Final Staphylococcus aureus 11/20/17 21:25 Abscess - Finger Gram Stain - Final 11/20/17 21:25 Abscess - Finger Wound Culture - Final Staphylococcus aureus Lab - Hematology Results 11/24/17 06:49 WBC 12.2 H RBC 2.69 L Hgb 8.8 L Hct 26.8 L MCV 99.7 MCH 32.9 MCHC 33.0 RDW 13.2 Plt Count 204 MPV 9.3 Neut % (Auto) 68.7 Lymph % (Auto) 16.1 Blair % (Auto) 12.0 H Eos % (Auto) 2.8 Baso % (Auto) 0.4 Neut # (Auto) 8.4 H Lymph # (Auto) 2.0 Blair # (Auto) 1.5 H Eos # (Auto) 0.3 Baso # (Auto) 0.0 WBC Differential . Differential Comment Auto diff final Lab - Chemistry Results 11/22/17 11/23/17 11/23/17 22:02 07:36 15:10 Sodium Potassium Chloride Carbon Dioxide Anion Gap BUN Creatinine Estimated GFR POC Glucose 387 H 194 H 475 H* Random Glucose Calcium Phosphorus Albumin 11/23/17 11/23/17 11/24/17 18:24 19:57 06:49 Sodium 137 Potassium 4.1 Chloride 99 Carbon Dioxide 27.1 Anion Gap 11 BUN 57 H Creatinine 6.32 H Estimated GFR 8 L POC Glucose 361 H 243 H Random Glucose 177 H Calcium 8.9 Phosphorus 3.2 Albumin 2.4 L 11/24/17 11/24/17 08:26 11:38 Sodium Potassium Chloride Carbon Dioxide Anion Gap BUN Creatinine Estimated GFR POC Glucose 200 H 126 H Random Glucose Calcium Phosphorus Albumin Imaging: ITS Impressions Finger X-Ray 11/20/17 00:00 CONCLUSION: Soft tissue swelling third digit distally with partial resorption of the tuft of the third distal phalanx, most concerning for osteomyelitis and cellulitis. Physical Exam: GENERAL: No acute distress. Awake and alert and oriented. HEENT: Head atraumatic. Extraocular movements are grossly intact. Pupils reactive to light, without icterus. Oropharynx moist mucosa without lesions. NECK: Supple without adenopathy. LUNGS: Clear breath sounds. HEART: Regular S1, S2, without murmurs, rubs or gallops. EXTREMITIES: Right 3rd finger is swollen and erythematous. Dressing in place. No drainage. SKIN: No diffuse rash. NEUROLOGIC: No gross focal findings. PSYCHIATRIC: Calm and cooperative. Assessment and Plan (1) Osteomyelitis Status: Acute Code(s): M86.9 - Osteomyelitis, unspecified - Plan IMPRESSION: 1. Right middle finger wound infection. MSSA. 2. Osteomyelitis of the right middle finger. 3. Bacteremia due to Staphylococcus aureus. Finger infection source. 4. End-stage kidney disease. RECOMMENDATIONS: Vancomycin after dialysis treatments. Okay to discharge on Vancomycin IV every MWF with dialysis when blood culture is negative at 3 days. Orders written and case management is making arrangement with outpatient pharmacy for Vancomycin to be sent t dialysis center with patient for administration. Follow up with Dr Alvarez in 2 weeks. Discussed with patient. Discussed with Dr. Adam. Discussed with case management. (1) Osteomyelitis Qualifiers: Osteomyelitis type: acute hematogenous Osteomyelitis location: hand Laterality: right Qualified Code(s): M86.041 - Acute hematogenous osteomyelitis , right hand
--- NOTE | 2017-11-24 16:31 | P.PNWCN ---
Wound Care Nurse Consult Description: Consult for wound management of finger per Dr Brown Communicated with: RAVEN Montalvo Dr Recommendation: Cleanse right hand 3rd digit open wound every other day and apply single layer Xeroform secured with dry cover. Follow up with outpatient wound care. Additional information: Patient seen on for wound to middle finger of right hand. Wound/Pressure Injury - Wound Right Finger - 3rd Digit Length: 1.2 (cm) Width: 3.5 (cm) Wound Bed Appearance: Manuel Garcia Ii, White, Yellow Wound Bed Appearance: Dry; not actively draining. Surrounding Tissue Appearance: Edematous Dressing Status: Changed Cleansing Solution: Saline Primary Dressing: Xeroform Cover Dressing: Gauze Roll/Wrap Tape Type: Paper Wound Dressing Change Date: 11/24/17
[2017-11-24] MEDS ORDERED: Gabapentin 100 MG Capsule PO SCH (21:00)
[2017-11-24] MEDS ORDERED: Insulin Detemir Inj 1,000 UNIT/10 ML Vial SQ SCH (21:00)
[2017-11-24] MEDS: Metoprolol Tartrate 100 MG Tablet PO SCH (21:07)
[2017-11-25] MEDS: Insulin NovoLOG Aspart Correctional Sugar Inj SQ SCH ×2 (08:40→13:18)
[2017-11-25] MEDS: Senna/Docusate Sodium 8.6/50 MG Tablet PO SCH (08:43)
[2017-11-25] MEDS: Metoprolol Tartrate 100 MG Tablet PO SCH (08:43)
[2017-11-25] MEDS ORDERED: Torsemide 20 MG Tablet PO SCH (09:00)
[2017-11-25] MEDS ORDERED: Isosorbide Mononitrate 20 MG Tablet PO SCH (09:00)
--- NOTE | 2017-11-25 10:40 | P.PN ---
Subjective Interval history: Pt seen and examined for f/u right finger osteomyelitis. Pt reports she is feeling well and looks forward to going home whenever she is cleared. She has not been evaluated by PT this admission. The plan is for outpatient IV antibiotics MWF after HD and ID is making arrangements. She denies CP, SOB, abdominal pain, N/V. She had an episode of hypoglycemia this morning that she was symptomatic with. She states she woke up with blurry vision and knew her sugar was low. She states at home she eats more than what she has been eating in the hospital. She follows with Dr. Boston for her DM. Physical Exam Vital signs: Vital Signs 11/24/17 14:30 11/24/17 16:00 11/24/17 20:00 Temperature 98.0 F 97.9 F 98.2 F Pulse Rate 75 80 76 Respiratory Rate 20 20 17 Blood Pressure 143/66 H 145/63 H 116/57 L Pulse Oximetry 99 95 95 11/25/17 00:00 11/25/17 04:00 11/25/17 08:00 Temperature 98 F 97.9 F 98.1 F Pulse Rate 66 62 67 Respiratory Rate 17 17 17 Blood Pressure 117/56 L 119/56 L 121/86 Pulse Oximetry 95 94 L 96 Intake & Output 11/24/17 11/25/17 11/25/17 18:59 06:59 18:59 Intake Total 240 / 240 730 / 730 Output Total 3000 / 3000 Balance -2760 / -2760 730 / 730 Weight 93.468 kg Intake: IV 250 / 250 Vancomycin Inj 1,000 MG In NS 250 / 250 Inj 250 ML @ 250 mls/hr IV.[facility] Rx#:[id number] Oral 240 / 240 480 / 480 Output: Hemodialysis Amount 3000 / 3000 Other: # Voids 1 Date of Last Bowel Movement 11/23/17 Narrative: GENERAL: WN, WD pleasant AA female resting in bed in NAD. SKIN: Warm and dry. HEART: RRR with 1/6 ADOLFO. LUNGS: CTAB without wheezes or crackles. ABDOMEN: +BS, soft, NT, ND. EXTREMITIES: R third finger wrapped without any saturation of dressing. LUE with AVF in place. No LE edema. 2+ pedal pulses. NEURO: Awake and alert. Nonfocal. PSYCH: Appropriate mood and affect. Results - Labs CBC & Chem 7: 08/03/18 06:49 11/24/17 06:49 Laboratory Results - last 24 hr 11/24/17 11/24/17 11/24/17 11:38 17:38 17:39 POC Glucose 126 H 331 H 280 H 11/24/17 11/25/17 11/25/17 20:59 07:55 08:35 POC Glucose 313 H 49 L* 106 Microbiology 11/22/17 12:00 Blood - Line Aerobic Blood Culture - Preliminary No growth in 2 days 11/22/17 12:00 Blood - Line Anaerobic Blood Culture - Preliminary No growth in 2 days 11/22/17 12:00 Blood - Line Aerobic Blood Culture - Preliminary No growth in 2 days 11/22/17 12:00 Blood - Line Anaerobic Blood Culture - Preliminary No growth in 2 days 11/20/17 15:50 Blood - Peripheral Aerobic Blood Culture - Preliminary No growth in 4 days 11/20/17 15:50 Blood - Peripheral Anaerobic Blood Culture - Final Staphylococcus aureus - Procedures none Assessment and Plan - Assessment (1) End-stage renal disease needing dialysis Code(s): N18.6 - End stage renal disease; Z99.2 - Dependence on renal dialysis Status: Chronic (2) Infected hand Code(s): L08.9 - Local infection of the skin and subcutaneous tissue, unspecified Status: Acute - Plan 86 year old female with ESRD on HD, DM, HTN, and HLD admitted on 11/20 for R middle finger infection. 1. MSSA bacteremia, sepsis, R middle finger osteomyelitis - Blood cultures on 11/20 growing Staph aureus in 3 out of 4 - Wound culture from finger also growing Staph aureus - Repeat blood culture from 11/22 NG x 3 days - Hand surgery consulted, recommends IV antibiotics, no surgery at this time - ID following; okay to discharge on Vancomycin IV every MWF with dialysis when blood culture is negative at 3 days (i.e. TODAY) - OT ordered 2. ESRD on dialysis - HD MWF - Managed by nephrology -Avoid nephrotoxins 3. HTN - Stable - Continue home metoprolol, Procardia, and isosorbide 4. Diabetes - Hypoglycemic this morning with sugar 49, repeat 106 following orange juice - Accuchecks with SSI - Novolog 20 units TIDAC - Reduce Levemir to 30 units while in the hospital since she is not eating as much as she does at home 5. Anemia of chronic disease - Epogen with HD DVT prophylaxis: SCDs, ambulatory Code Status: Full Discussed Condition With: The patient Discharge Planning: Anticipate D/C today. ID to arrange outpatient IV Vancomycin at dialysis MW. Consult PT to make d/c recommendations regarding need for possible HHC w/ PT
[2017-11-25] MEDS ORDERED: Insulin Detemir Inj 1,000 UNIT/10 ML Vial SQ SCH (13:01)
--- NOTE | 2017-11-25 15:21 | P.DCO ---
- Diagnosis (1) Sepsis (2) Osteomyelitis - Physical Therapy Order: Evaluate and treat, Improve ambulation, Strength and gait training - Home Health Nursing Order: Wound care and dressing changes, Nursing assessment with vital signs - Certification I have seen patient Vanita Escobar on 11/25/17. My clinical findings support the need for the requested home health care services because: Deconditioned with increased weakness, High risk of falls I certify that my clinical findings support that this patient is homebound because: Unsteady gait/balance (1) Sepsis Qualifiers: Sepsis type: sepsis due to unspecified organism Qualified Code(s): A41.9 - Sepsis, unspecified organism (2) Osteomyelitis Qualifiers: Osteomyelitis type: acute hematogenous Osteomyelitis location: hand Laterality: right Qualified Code(s): M86.041 - Acute hematogenous osteomyelitis , right hand
[2017-11-28 18:20] VITALS: BP 120/65; PULSE 112; RESP 17; TEMP 97.8
--- NOTE | 2017-12-19 11:04 | P.DS ---
Date of admission: 11/20/17 20:41 Primary care physician: UNKNOWN Attending physician on discharge: Pili Wright Anticipated date of discharge: 11/25/17 Brief History from admission: 86 y/o female with a history of ESRD on dialysis, DM, HTN, and HLD presented to the ED for evaluation of infection to her right middle finger. She states she uses a tamie to play games and she plays with it using her right middle finger. Over time she has developed a callus and 4 days ago she bit it off. Today she states she was having fever and chills at home and pain in the middle finger that is thobbing, constant,5/10, and radiating up her arm. She denies any chest pain or sob. Electric Organ Assembler: Dr. Adam DS: Diagnosis - Discharge Diagnosis (1) Sepsis Status: Acute (2) Osteomyelitis Status: Acute (3) End-stage renal disease needing dialysis Status: Chronic (4) Bacteremia due to Gram-positive bacteria Status: Acute (5) Infected hand Status: Acute DS: Summary Hospital Course: 86 year old female with ESRD on HD, DM, HTN, and HLD admitted on 11/20 for R middle finger infection. During her hospitalization, she was treated for the followin. MSSA bacteremia, sepsis, R middle finger osteomyelitis - Blood cultures on 11/20 growing Staph aureus in 3 out of 4 - Wound culture from finger also growing Staph aureus - Repeat blood culture from 11/22 NG x 3 days - Hand surgery consulted, recommends IV antibiotics, no surgery at this time - ID following; okay to discharge on Vancomycin IV every MWF with dialysis when blood culture is negative at 3 days (i.e. 11/25/17) - OT ordered 2. ESRD on dialysis - HD MWF - Managed by nephrology 3. HTN - Remained stable - Continued home metoprolol, Procardia, and isosorbide 4. Diabetes - Treated with SSI and Novolog 20 units TIDAC - Levemir 30 units 5. Anemia of chronic disease - Treated with Epogen with HD The patient was cleared b infectious disease to receive IV vancomycin MWF at dialsis. She was discharged in stable condition on 11/25 with [facility]. - Time Spent with Patient Total time spent providing and/or coordinating discharge services: Greater than 30 minutes - Quality: VTE Deep Vein Thrombosis/Pulmonary Embolism Present on Admission: No Exam Narrative: GENERAL: WN, WD pleasant AA female resting in bed in NAD. SKIN: Warm and dry. HEART: RRR with 1/6 ADOLFO. LUNGS: CTAB without wheezes or crackles. ABDOMEN: +BS, soft, NT, ND. EXTREMITIES: R third finger wrapped without any saturation of dressing. LUE with AVF in place. No LE edema. 2+ pedal pulses. NEURO: Awake and alert. Nonfocal. PSYCH: Appropriate mood and affect. Results Procedures completed during hospitalization: none - Impressions ITS Impressions Finger X-Ray 11/20/17 00:00 CONCLUSION: Soft tissue swelling third digit distally with partial resorption of the tuft of the third distal phalanx, most concerning for osteomyelitis and cellulitis. Discharge Plan - Discharge Disposition Patient Disposition: /Home Health Service - Discharge Condition Condition: Stable - Discharge Order Discharge Orders: Discharge Order (Routine); Ordered 11/25/17 Ordered By: Pili Wright - Discharge Details Anticipated Discharge Date: 11/25/17 - Physicians Team Primary Care Provider: UNKNOWN, Attending Provider: Pili Wright Other Providers: Hollis Alston MD ; David Olmos MD ; Jose Elias Adam MD
== END 2017-11-25 18:20 | disposition home health service (06) ==
LOC: NEPC 14:16 → NEDA 20:41 → H7ONC 22:25 → N07 11-24 17:23
PROVIDERS: ADMIT Family Medicine; ATTEND Family Medicine